=== PATIENT | female | born 1970 | race Caucasian/White ===

== ENCOUNTER 2023-10-20 15:22 | Emergency (ER) | payer BC, SELFPAY ==
[2023-10-20 15:25] VITALS: BP 139/82
--- NOTE | 2023-10-20 16:04 | ED.MUSCINJ ---
HPI-Injury
General
Chief Complaint: Musculo-Skeletal Complaint
Source: patient
Exam Limitations: none
Time Seen by Provider: 10/20/23 15:35
Travel History
Have you had any contact with someone who has COVID-19?: No
Do you have any symptoms of coronavirus? Fever > 100 degrees, chills, cough, shortness of breath, sore throat, loss of taste or smell, muscle aches, or headache?: No
History of Present Illness-Injury
Initial Injury comments:
53-year-old female presents complaining of bilateral ankle pain starting today. She states she was sitting on her feet and got up and did not realize her feet were asleep and twisted her ankles. First the right than the left. She complains of
left ankle pain more than right ankle pain. No prior injury. No other complaints at this time
Past History
Past History
ED Past Medical History: Arrthythmia (Long QT) and GERD
Social History
Tobacco: Non-smoker
Phy Exam
Physical Exam
Physical Exam:
General: Well-appearing female no acute respiratory distress
Musculoskeletal exam: Right ankle swollen tender over the distal fibula. The knee is nontender. The left ankle is also swollen and tender over the distal fibula. No deformities. Good range of motion bilaterally
Neurologic: Good sensation bilateral feet
Vascular: 2+ dorsalis pedis pulse bilateral feet
Injury Course
Orders/Labs/Results
Orders:
Orders
10/20/23 15:28
Ankle, Right 3 view CR [CR Ankle - Right Min 3 Views *] Urgent
Comment:
Reason For Exam: twisted ankle getting up from desk
Ankle, left 3 view CR [CR Ankle - Left Min 3 Views ] Urgent
Comment:
Reason For Exam: tested left ankle while getting up from her desk
10/20/23 16:03
Crutches-Treatment ONCE
Ortho Boot Right- Treatment ONCE
Short or tall?: Tall
MDM/Problems Addressed
Differential Diagnosis Includes:
Bilateral ankle pain after inversion injury bilaterally question possible fracture versus dislocation versus sprain
I personally visualized x-rays of both ankles. There is an avulsion fracture of the distal fibula on the right side there is no bony injury on the left. Patient placed in a walking boot on the right Slim bandage on the left and given crutches for
support. Advised orthopedic follow-up stable for discharge
*Critical Care Note
Total Time (30-74mins, 75-104mins- exclusive of procedures): Not Applicable
ED Attending Note
-
Portions of this chart may have been created with voice recognition software.� Occasional wrong word or��sound alike� substitutions may have occurred due to the inherent limitations of voice recognition software.
Discharge Plan
Departure
Patient Disposition: Home (Routine Discharge)
Date of Disposition: 10/20/23
Time of Disposition: 16:09
Patient with high blood pressure during this ER visit?: No
Discharge Problem:
Ankle fracture
Instructions: Ankle Sprain (DC), Muscle and Bone Pain (DC)
Prescriptions:
No Action
ondansetron 8 mg tablet,disintegrating
8 mg PO TID PRN (Reason: nausea and vomiting) Qty: 20 0RF
oxycodone 5 mg tablet
5 mg PO Q4H PRN (Reason: pain) Qty: 10 0RF
sucralfate [Carafate] 100 mg/mL suspension
10 ml PO BID 14 Days Qty: 280 0RF
Referrals:
Adam Long MD [Active] -
Activity Restrictions/Additional Instructions:
Use crutches for support. You may bear weight on your feet but can use crutches to take weight off your feet. Use boot on the right side. Use Slim bandage on the left. Please follow-up with orthopedics for further evaluation
Interventions
Interventions:
*ED COVID-19 Vaccine History Last Done: 10/20/23 15:25
[2023-10-20 16:20] VITALS: BMI 29.0
== END 2023-10-20 16:41 | disposition home or self-care (01) ==
LOC: EMR 15:22
PROVIDERS: EMERGENCY PHYSICIAN Emergency Medicine; FAMILY PHYSICIAN Internal Medicine
DX: S82.61XA Displaced fracture of lateral malleolus of right fibula, initial encounter for closed fracture (principal); X50.1XXA Overexertion from prolonged static or awkward postures, initial encounter; K21.9 Gastro-esophageal reflux disease without esophagitis
CPT/HCPCS: 99283; 73610

== ENCOUNTER 2024-02-24 18:36 | Emergency (ER) | payer OTHER, SELFPAY ==
[2024-02-24 18:42] VITALS: BP 129/86
[2024-02-24 19:05] VITALS: BMI 26.7
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
[2024-02-24] MEDS: VALIUM 5 MG PO (21:30)
== END 2024-02-24 21:53 | disposition home or self-care (01) ==
LOC: EMR 18:36
PROVIDERS: EMERGENCY PHYSICIAN Emergency Medicine; FAMILY PHYSICIAN Internal Medicine
DX: M54.9 Dorsalgia, unspecified (principal); M62.838 Other muscle spasm; V89.2XXA Person injured in unspecified motor-vehicle accident, traffic, initial encounter; Y92.410 Unspecified street and highway as the place of occurrence of the external cause; J45.909 Unspecified asthma, uncomplicated; K21.9 Gastro-esophageal reflux disease without esophagitis; E78.00 Pure hypercholesterolemia, unspecified; K58.9 Irritable bowel syndrome, unspecified
CPT/HCPCS: 99283; 72040; 72072; 72100

== ENCOUNTER 2024-03-03 07:07 | Emergency (ER) | payer OTHER, SELFPAY ==
[2024-03-03 07:10] VITALS: BP 123/83
[2024-03-03 07:23] VITALS: BMI 26.4
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
== END 2024-03-03 08:55 | disposition home or self-care (01) ==
LOC: EMR 07:07
PROVIDERS: EMERGENCY PHYSICIAN Emergency Medicine; FAMILY PHYSICIAN Internal Medicine
DX: M25.511 Pain in right shoulder (principal); J45.909 Unspecified asthma, uncomplicated; E78.00 Pure hypercholesterolemia, unspecified; I45.81 Long QT syndrome; K58.9 Irritable bowel syndrome, unspecified
CPT/HCPCS: 99283; 73030; 93005